=== PATIENT | male | born 1960 | race Caucasian/White ===

== ENCOUNTER 2021-03-25 10:03 | Emergency (ER) | payer OTHER ==
[2021-03-25 10:09] VITALS: BP 158/96; PULSE 98; TEMP 98.2; BMI 32.5
== END 2021-03-25 11:30 | disposition home or self-care (01) ==
LOC: JER 10:03 → JERFT 10:03
DX: M77.32 Calcaneal spur, left foot (principal); X50.1XXA Overexertion from prolonged static or awkward postures, initial encounter
CPT/HCPCS: 73630-TC-LT; 99283-25

== ENCOUNTER 2021-11-09 09:00 | Emergency (ER) | payer OTHER ==
[2021-11-09 09:11] VITALS: BP 141/96; PULSE 88; TEMP 98.3; BMI 31.8
[2021-11-09] MEDS ORDERED: KETOROLAC TROMETHAMINE 30 MG/1 ML VIAL IM ONE (09:40)
[2021-11-09] MEDS ORDERED: KETOROLAC TROMETHAMINE 30 MG/1 ML VIAL ONE (09:43)
[2021-11-09 10:58] LABS: URINE APPEARANCE CLEAR; URINE BILIRUBIN NEGATIVE (NEGATIVE); URINE COLOR YELLOW; URINE GLUCOSE (UA) NEGATIVE (NEGATIVE); URINE KETONE NEGATIVE (NEGATIVE); URINE LEUK ESTERASE NEGATIVE (NEGATIVE); URINE NITRITE NEGATIVE (NEGATIVE); URINE PROTEIN NEGATIVE (NEGATIVE); URINE UROBILINOGEN 0.2 mg/dL (0.2-1.0)
== END 2021-11-09 12:09 | disposition home or self-care (01) ==
LOC: JER 09:00
PROC: 3E0233Z Introduction of Anti-inflammatory into Muscle, Percutaneous Approach (ICD-10-PCS; principal; 2021-11-09)
DX: M54.41 Lumbago with sciatica, right side (principal)
CPT/HCPCS: 81003; 87086; 99284-25

== ENCOUNTER 2022-06-11 08:44 | Emergency (ER) | payer OTHER ==
[2022-06-11 08:53] VITALS: BMI 32.5
[2022-06-11] MEDS ORDERED: ACETAMINOPHEN 500 MG TABLET (FP) PO ONE (10:41)
[2022-06-11 11:09] VITALS: BP 151/84; PULSE 68; RESP 18; TEMP 97.8
== END 2022-06-11 11:24 | disposition home or self-care (01) ==
LOC: JER 08:44
DX: R05.1 Acute cough (principal); G44.89 Other headache syndrome
CPT/HCPCS: 0241U-QW; 71046-TC-FY; 99284-25

== ENCOUNTER 2022-07-09 03:57 | Emergency (ER) | payer OTHER ==
[2022-07-09 04:04] VITALS: RESP 18; BMI 30.1
[2022-07-09] MEDS ORDERED: MECLIZINE HCL 25 MG TABLET (FP) PO ONE (05:10)
[2022-07-09] MEDS ORDERED: MECLIZINE HCL 25 MG TABLET (FP) ONE (05:14)
[2022-07-09 05:53] LABS: BASO % 0.4 % (0-2.0); HEMATOCRIT 46.6 % (35.4-49); HEMOGLOBIN 16.5 GM/dL (11.7-16.9); LYMPH % 19.3 % (8-40); MCHC 35.4 g/dl (32.0-35.9); MEAN CELL VOLUME 84.9 fl (80-96); MEAN PLT VOLUME 7.6 fl (7.5-11.1); MONO % 6.2 % (3.8-10.2); NEUT % 71.1 % (42.8-82.8); PLATELET COUNT 207 10^3/uL (134-434); RBC 5.48 M/mm3 (4.00-5.60); RDW 13.5 % (11.9-15.9)
[2022-07-09 06:12] LABS: CALCIUM 8.6 mg/dL (8.5-10.1)
[2022-07-09 06:13] LABS: ALBUMIN 3.9 g/dl (3.4-5.0); BLOOD UREA NITROGEN 21.2 mg/dL (7-18)
[2022-07-09 06:16] LABS: CREATININE 0.9 mg/dL (0.55-1.3)
[2022-07-09 06:18] LABS: BILIRUBIN,TOTAL 0.9 mg/dL (0.2-1); TOT PROT 7.8 g/dl (6.4-8.2)
[2022-07-09 06:52] VITALS: BP 156/94; PULSE 68; TEMP 98.9
== END 2022-07-09 09:13 | disposition home or self-care (01) ==
LOC: JER 03:57
DX: R42 Dizziness and giddiness (principal)
CPT/HCPCS: 0241U-QW; 36415; 80053; 84484; 85025; 93005; 93010; 99284-25